=== PATIENT | female | born 1980 ===

== ENCOUNTER 2017-07-25 20:06 | Emergency (ER) | payer MEDICAID ==
[2017-07-25] MEDS ORDERED: Aluminum Hydroxide/Magnesium Hydroxide Susp (30 mL) PO STA (21:01)
[2017-07-25] MEDS ORDERED: Lactated Ringer's 1,000 ML IV STA (21:01)
[2017-07-25 21:21] LABS: HCG,QUALITATIVE URINE NEGATIVE (NEGATIVE)
[2017-07-25 21:22] LABS: BASO # 0.1 K/uL (0.0-0.2); BASO % 0.8 % (0.0-2.0); EOS # 0.1 K/uL (0.0-0.7); EOS % 1.6 % (0.0-4.0); HEMOGLOBIN 9.2 g/dL (11.0-16.0); LYMPH # 1.5 K/uL (1.0-4.3); LYMPH % 18.7 % (20.0-40.0); MEAN CELL VOLUME 68.3 fL (81.0-99.0); MEAN CORPUSCULAR HEMOGLOBIN 21.4 pg (27.0-31.0); MEAN CORPUSCULAR HGB CONC 31.4 g/dL (33.0-37.0); MEAN PLATELET VOLUME 7.9 fL (7.2-11.7); MONO # 0.5 K/uL (0.0-0.8); MONO % 6.3 % (0.0-10.0); NEUT # 5.9 K/uL (1.8-7.0); NEUT % 72.6 % (50.0-75.0); RBC 4.28 Mil/uL (3.80-5.20); RED CELL DISTRIBUTION WIDTH 18.5 % (11.5-14.5); WHITE BLOOD COUNT 8.1 K/uL (4.8-10.8)
[2017-07-25 21:25] LABS: SQUAMOUS EPITHIAL 3 /hpf (0-5); URINE BILIRUBIN NEGATIVE (NEGATIVE); URINE BLOOD 1+ (NEGATIVE); URINE CLARITY Hazy (Clear); URINE COLOR Yellow (YELLOW); URINE GLUCOSE (UA) NORMAL (Normal); URINE LEUKOCYTE ESTERASE NEG Leu/uL (Negative); URINE PROTEIN NEGATIVE (NEGATIVE); URINE UROBILINOGEN NORMAL mg/dL (0.2-1.0)
[2017-07-25 21:34] LABS: ALB/GLOB RATIO 1.2 (1.0-2.1); ALBUMIN 4.2 g/dL (3.5-5.0); ALT/SGPT 11 U/L (9-52); AST/SGOT 22 U/L (14-36); BLOOD UREA NITROGEN 11 mg/dL (7-17); CALCIUM 9.1 mg/dl (8.6-10.4); GFR AFRICAN-AMERICAN > 60; GFR NON-AFRICAN AMERICAN > 60; LIPASE 81 U/L (23-300)
[2017-07-25] MEDS ORDERED: Lactated Ringer's 1,000 ML ONE (21:39)
[2017-07-25] MEDS ORDERED: Aluminum Hydroxide/Magnesium Hydroxide Susp (30 mL) ONE (21:39)
[2017-07-25] MEDS ORDERED: Iodixanol 320 MG/ML 100 ML BOTTLE IV ONE (23:02)
--- NOTE | 2017-07-25 23:23 | C.PDOC ---
History Of Present Illness 37yo female, with history of chronic abdominal pain, was supposed to have an endoscopy and a colonoscopy on 07/16/17 but states she had to reschedule the appointment. She states she has been following up with a GI specialist who recommends she should take medications but has not been started on anything. She reports a sudden onset left upper quadrant pain earlier today, described as sharp. She denies any fever, chills, nausea, vomiting or diarrhea. She has no other medical complaints. Time Seen by Provider: 07/25/17 21:00 Chief Complaint (Nursing): Abdominal Pain History Per: Patient History/Exam Limitations: no limitations Onset/Duration Of Symptoms: Hrs, Sudden Onset Current Symptoms Are (Timing): Still Present Location Of Pain/Discomfort: LUQ Quality Of Discomfort: Sharp Additional History Per: Patient Abnormal Vaginal Bleeding: No Past Medical History Reviewed: Historical Data, Nursing Documentation, Vital Signs Vital Signs: Last Vital Signs Temp 97.9 F 07/26/17 01:13 Pulse 72 07/26/17 01:13 Resp 18 07/26/17 01:13 BP 106/69 07/26/17 01:13 Pulse Ox 100 07/26/17 01:13 - Medical History PMH: Anemia (IRON DEFICIENCY ANEMIA), Arthritis (PSORIATIC ARTHRITIS), Depression, Gastritis, Rheumatoid Arthritis Denies: Chronic Kidney Disease Surgical History: Other Surgeries: Tubal ligation - [facility] Procedures CLOSURE SKIN & SUBCUTANEOUS NEC (12/28/04) INJECT/INFUSE NEC (10/12/04) Family History: States: No Known Family Hx - Social History Hx Tobacco Use: No Hx Alcohol Use: No Hx Substance Use: No - Immunization History Hx Tetanus Toxoid Vaccination: No Hx Influenza Vaccination: No Hx Pneumococcal Vaccination: No Review Of Systems Except As Marked, All Systems Reviewed And Found Negative. Constitutional: Negative for: Fever, Chills, Weakness, Malaise, Weight loss Eyes: Negative for: Pain, Vision Change, Conjunctivae Inflammation ENT: Negative for: Ear Pain, Ear Discharge Cardiovascular: Negative for: Palpitations, Orthopnea, Paroxysmal Noc. Dyspnea, Light Headedness Respiratory: Negative for: Cough, Shortness of Breath, Hemoptysis, SOB with Excertion, Pleuritic Pain, Sputum, Wheezing Gastrointestinal: Positive for: Abdominal Pain. Negative for: Nausea, Vomiting , Diarrhea Genitourinary: Negative for: Dysuria, Frequency, Hematuria, Pelvic Pain Musculoskeletal: Negative for: Neck Pain, Shoulder Pain, Arm Pain, Back Pain, Hand Pain, Leg Pain, Foot Pain Skin: Negative for: Rash Neurological: Negative for: Weakness, Numbness, Incoordination, Change in Speech , Confusion, Seizures, Altered Mental Status, Headache, Dizziness Psych: Negative for: Anxiety, Depression, Psychosis, Suicidal ideation Physical Exam - Physical Exam Appears: Non-toxic, No Acute Distress Skin: Normal Color, Warm, Dry Head: Atraumatic, Normacephalic Eye(s): bilateral: Normal Inspection, PERRL Neck: Normal ROM, Supple Chest: Symmetrical Cardiovascular: Rhythm Regular Respiratory: Normal Breath Sounds Gastrointestinal/Abdominal: Soft, Tenderness (left upper quadrant, left lower quadrant, and left flank tenderness) Back: Normal Inspection, No CVA Tenderness Extremity: Normal ROM, No Deformity Neurological/Psych: Oriented x3 ED Course And Treatment - Laboratory Results Result Diagrams: 07/25/17 21:18 07/25/17 21:18 Medical Decision Making Medical Decision Making: Impression: Abdominal pain Plan: -- Labs -- Urinalysis -- XR Abdomen -- CT Abdomen and Plevis w/ IV contrast -- Maalox 30 ml PO -- Protonix 40mg IV -- IV Fluids Time: 2057 Urinalysis reviewed, ketone 1+ Beta negative Labs reviewed, no white count elevation, hemoglobin stable. Time: 37 EXAM: CT Abdomen and Pelvis With Intravenous Contrast EXAM DATE/TIME: 07/25/2017 10:55 PM CLINICAL HISTORY: 37 years old, female; Pain; Abdominal pain; Prior surgery; Surgery type: Tub legation; Additional info: Abd pain TECHNIQUE: Axial computed tomography images of the abdomen and pelvis with intravenous contrast. All CT scans at this facility use one or more dose reduction techniques, viz.: automated exposure control; ma/kV adjustment per patient size (including targeted exams where dose is matched to indication; i.e. head); or iterative reconstruction technique. Coronal and sagittal reformatted images were created and reviewed. CONTRAST: 100 mL of [id number] administered intravenously. COMPARISON: No relevant prior studies available. FINDINGS: The liver is normal. The spleen is normal. The pancreas is normal. No gallstones. No hydronephrosis or perinephric stranding. The bowel appears normal. A normal appendix is identified coronal images 55 through 57, axial images 113 - 119. Small scattered mesenteric lymph nodes are noted. Bilateral ovarian follicles are noted with 1.2 cm dominant follicle in the left ovary. No significant free fluid. IMPRESSION: No acute findings. Disposition Counseled Patient/Family Regarding: Diagnosis, Need For Followup - Disposition Referrals: [facility] at [facility] [place] [Outside] [facility] at [facility] [Outside] [facility] at [place] [Outside] Disposition: HOME/ ROUTINE Disposition Time: 00:57 Condition: GOOD Additional Instructions: return if symptoms worsen Instructions: Acute Abdomen (Belly Pain) Forms: [employer] (Thai) - Clinical Impression Clinical Impression: Abdominal pain - Scribe Statement The provider has reviewed the documentation as recorded by the Scribe (Maryanne Michel) Provider Attestation: All medical record entries made by the Scribe were at my direction and personally dictated by me. I have reviewed the chart and agree that the record accurately reflects my personal performance of the history, physical exam, medical decision making, and the department course for this patient. I have also personally directed, reviewed, and agree with the discharge instructions and disposition.
[2017-07-25 23:46] VITALS: RESP 18
--- NOTE | 2017-07-26 00:36 | CT ---
EXAM: CT Abdomen and Pelvis With Intravenous Contrast EXAM DATE/TIME: 07/25/2017 10:55 PM CLINICAL HISTORY: 37 years old, female; Pain; Abdominal pain; Prior surgery; Surgery type: Tub legation; Additional info: Abd pain TECHNIQUE: Axial computed tomography images of the abdomen and pelvis with intravenous contrast. All CT scans at this facility use one or more dose reduction techniques, viz.: automated exposure control; ma/kV adjustment per patient size (including targeted exams where dose is matched to indication; i.e. head); or iterative reconstruction technique. Coronal and sagittal reformatted images were created and reviewed. CONTRAST: 100 mL of [id number] administered intravenously. COMPARISON: No relevant prior studies available. FINDINGS: The liver is normal. The spleen is normal. The pancreas is normal. No gallstones. No hydronephrosis or perinephric stranding. The bowel appears normal. A normal appendix is identified coronal images 55 through 57, axial images 113 - 119. Small scattered mesenteric lymph nodes are noted. Bilateral ovarian follicles are noted with 1.2 cm dominant follicle in the left ovary. No significant free fluid. IMPRESSION: No acute findings.
[2017-07-26 01:13] VITALS: BP 106/69; PULSE 72; TEMP 97.9; O2SAT 100
--- NOTE | 2017-07-26 08:20 | RAD ---
PROCEDURE: Radiographs of the chest and abdomen (obstructive series) HISTORY: abd pain COMPARISON: No prior. TECHNIQUE: AP radiograph of the chest, with upright and supine radiographs of the abdomen. FINDINGS: CHEST: Lungs: Clear. Cardiovascular: Normal size heart. No pulmonary vascular congestion. Pleura: No pleural fluid. No pneumothorax. Other findings: None. ABDOMEN AND PELVIS: Bowel: Unremarkable bowel gas pattern. No evidence of mechanical obstruction. Free air: None. Bones: Unremarkable. Other findings: None. IMPRESSION: Unremarkable radiographs of chest and abdomen. No evidence of mechanical bowel obstruction.
== END 2017-07-26 01:14 | disposition home or self-care (01) ==
LOC: C.ER 20:06
DX: R10.9 Unspecified abdominal pain (principal); D50.9 Iron deficiency anemia, unspecified
CPT/HCPCS: 74022; 74177; 80053; 81001; 83690; 84703; 85025; 96361; 96374; 99285; C9113; J7120; Q9967

== ENCOUNTER 2017-12-23 10:22 | Emergency (ER) | payer MEDICAID ==
--- NOTE | 2017-12-23 11:22 | C.PDOC ---
History Of Present Illness 37 years old female with Hx of rheumatoid arthritis, 2 cysts, and cervical cancer (Years ago) BIBA for vaginal bleeding that began 8 days ago. Patient reports bleeding as "the usual menstrual cycle." Patient states "I always experience heavy bleeding and I get my menstrual cycle at least 3 times a month." Patient also reports associated abdominal pain, right sided back pain, one episode of vomiting, and generalized weakness. Patient also states symptoms are similar to previous. She also states taking 2 prescribed Naproxens. Patient is allergic to Caffeine, Park Naturalist: [place] Donaldson. Time Seen by Provider: 12/23/17 10:40 Chief Complaint (Nursing): Abdominal Pain History Per: Patient History/Exam Limitations: no limitations Onset/Duration Of Symptoms: Days (8) Current Symptoms Are (Timing): Still Present Location Of Pain/Discomfort: Diffuse Radiation Of Pain To:: Back Quality Of Discomfort: Cramping, Other (Contractions) Associated Symptoms: Vomiting. denies: Fever, Chills, Nausea, Diarrhea Exacerbating Factors: None Alleviating Factors: None Last Bowel Movement: Today Recent travel outside of the [place]: No Abnormal Vaginal Bleeding: Yes Past Medical History Reviewed: Historical Data, Nursing Documentation, Vital Signs Vital Signs: Last Vital Signs Temp 98.7 F 12/23/17 10:28 Pulse 70 12/23/17 10:28 Resp 18 12/23/17 10:28 BP 118/82 12/23/17 10:28 Pulse Ox 99 12/23/17 10:28 - Medical History PMH: Anemia (IRON DEFICIENCY ANEMIA), Arthritis (PSORIATIC ARTHRITIS), Depression, Gastritis, Rheumatoid Arthritis Surgical History: - [facility] Procedures CLOSURE SKIN & SUBCUTANEOUS NEC (12/28/04) INJECT/INFUSE NEC (10/12/04) Family History: States: No Known Family Hx - Social History Hx Tobacco Use: No Hx Alcohol Use: No Hx Substance Use: No - Immunization History Hx Tetanus Toxoid Vaccination: No Hx Influenza Vaccination: No Hx Pneumococcal Vaccination: No Review Of Systems Constitutional: Negative for: Fever, Chills Gastrointestinal: Positive for: Vomiting, Abdominal Pain. Negative for: Nausea Genitourinary: Positive for: Vaginal Bleeding Musculoskeletal: Positive for: Back Pain (Right sided lower back ) Skin: Negative for: Rash Neurological: Negative for: Weakness, Numbness Physical Exam - Physical Exam Appears: Non-toxic, No Acute Distress, Other (Pale) Skin: Warm, Dry, Rash (Scattered on her neck ) Head: Atraumatic, Normacephalic Eye(s): bilateral: Normal Inspection, PERRL, EOMI Oral Mucosa: Moist Neck: Supple Chest: Symmetrical, No Tenderness Cardiovascular: Rhythm Regular, No Murmur Respiratory: Normal Breath Sounds, No Rales, No Rhonchi, No Wheezing Gastrointestinal/Abdominal: Bowel Sounds (Active ), Soft, No Tenderness, No Distention, No Guarding, No Rebound Back: Normal Inspection, No CVA Tenderness, No Paraspinal Tenderness Extremity: Normal ROM, No Deformity Extremity: Bilateral: Atraumatic, Normal Color And Temperature, Normal ROM Neurological/Psych: Oriented x3, Normal Speech, Other (No focal deficits ) Gait: Steady ED Course And Treatment - Laboratory Results Result Diagrams: 12/23/17 11:32 12/23/17 11:32 O2 Sat by Pulse Oximetry: 99 (RA) Pulse Ox Interpretation: Normal - CT Scan/US Abdomen/Pelvis/Transvaginal US Other Rad Studies (CT/US): Read By Radiologist, Radiology Report Reviewed CT/US Interpretation: Date of service: 12/23/2017. PROCEDURE: Pelvic ultras ound. HISTORY: Heavy vaginal bleed, pelvic pain. COMPARISON: Comparison made with prior study 07/05/2017. TECHNIQUE: Transabdominal and transvaginal sonographic evaluation of the pelvis performed. FINDINGS: The uterus is anteverted measuring approximately 9.4 x 4.7 x 5.1 cm. Suspect small fundal fibroid that is measures approximately 1.8 x 1.8 x 1.9 cm. Endometrial stripe measures approximately 5.8 mm. Suspect small fundal fibroid. Right ovary measures 2.9 x 2.1 x 3.2 cm and left ovary measures 3.1 x 2.2 x 2.6 cm. Both ovaries exhibit arterial flow. There is a complex small left ovarian cyst that measures 0.75 x 0.64 x 0.81 cm. No free fluid seen in the cul de sac. IMPRESSION: Suspect small fundal fibroid.. Tiny complex appearing left ovarian cyst. Medical Decision Making Medical Decision Making: Plan: * Toradol * BBK * Blood work * Abdomen/Pelvis/Transvaginal US * Urinalysis Results were discussed with the patient and instructed to continue taking iron supplements. On re-exam, the patient reports improvement of symptoms. Lungs are CTA, heart is RRR, abdomen is soft, non-tender and tolerating PO well. Follow up with the medical doctor within 1-2 days without fail. Return if worsened. Disposition - Disposition Referrals: [facility] [Outside] [facility] [place] [Outside] Disposition: HOME/ ROUTINE Disposition Time: 14:30 Condition: STABLE Additional Instructions: Follow up with the OBGYN within 1-2 days without fail. Return if worsened. 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 - Scribe Statement The provider has reviewed the documentation as recorded by the Chanelleibdorita Earl All medical record entries made by the Scribe were at my direction and personally dictated by me. I have reviewed the chart and agree that the record accurately reflects my personal performance of the history, physical exam, medical decision making, and the department course for this patient. I have also personally directed, reviewed, and agree with the discharge instructions and disposition.
[2017-12-23 11:35] LABS: BASO # 0.1 K/uL (0.0-0.2); BASO % 0.6 % (0.0-2.0); EOS # 0.1 K/uL (0.0-0.7); EOS % 1.3 % (0.0-4.0); HEMOGLOBIN 9.7 g/dL (11.0-16.0); LYMPH # 1.5 K/uL (1.0-4.3); LYMPH % 14.7 % (20.0-40.0); MEAN CELL VOLUME 66.4 fL (81.0-99.0); MEAN CORPUSCULAR HEMOGLOBIN 20.4 pg (27.0-31.0); MEAN CORPUSCULAR HGB CONC 30.8 g/dL (33.0-37.0); MEAN PLATELET VOLUME 8.4 fL (7.2-11.7); MONO # 0.4 K/uL (0.0-0.8); MONO % 4.1 % (0.0-10.0); NEUT # 8.2 K/uL (1.8-7.0); NEUT % 79.3 % (50.0-75.0); RBC 4.76 Mil/uL (3.80-5.20); WHITE BLOOD COUNT 10.4 K/uL (4.8-10.8)
[2017-12-23 11:50] LABS: ALB/GLOB RATIO 1.4 (1.0-2.1); ALBUMIN 4.5 g/dL (3.5-5.0); ALT/SGPT 20 U/L (9-52); AST/SGOT 17 U/L (14-36); BLOOD UREA NITROGEN 16 mg/dL (7-17); CALCIUM 9.6 mg/dl (8.6-10.4); GFR NON-AFRICAN AMERICAN > 60
[2017-12-23 12:12] LABS: URINE BACTERIA RARE (<OCC); URINE BILIRUBIN NEGATIVE (NEGATIVE); URINE BLOOD 3+ (NEGATIVE); URINE CLARITY Hazy (Clear); URINE GLUCOSE (UA) NORMAL (Normal); URINE LEUKOCYTE ESTERASE TRACE Leu/uL (Negative); URINE PROTEIN 2+ mg/dL (NEGATIVE); URINE UROBILINOGEN NORMAL mg/dL (0.2-1.0)
[2017-12-23 12:22] LABS: HCG,QUALITATIVE URINE NEGATIVE (NEGATIVE)
[2017-12-23 12:23] LABS: URINE COLOR LIGHT RED (YELLOW)
--- NOTE | 2017-12-23 14:11 | US ---
Date of service: 12/23/2017 PROCEDURE: Pelvic ultrasound HISTORY: Heavy vaginal bleed, pelvic pain COMPARISON: Comparison made with prior study 07/05/2017. TECHNIQUE: Transabdominal and transvaginal sonographic evaluation of the pelvis performed. FINDINGS: The uterus is anteverted measuring approximately 9.4 x 4.7 x 5.1 cm. Suspect small fundal fibroid that is measures approximately 1.8 x 1.8 x 1.9 cm. Endometrial stripe measures approximately 5.8 mm. Suspect small fundal fibroid Right ovary measures 2.9 x 2.1 x 3.2 cm and left ovary measures 3.1 x 2.2 x 2.6 cm. Both ovaries exhibit arterial flow. There is a complex small left ovarian cyst that measures 0.75 x 0.64 x 0.81 cm. No free fluid seen in the cul de sac. IMPRESSION: Suspect small fundal fibroid.. Tiny complex appearing left ovarian cyst.
[2017-12-23 14:57] VITALS: BP 110/72; PULSE 73; RESP 17; TEMP 98.5
[2017-12-23 18:16] VITALS: O2SAT 99
== END 2017-12-23 15:19 | disposition home or self-care (01) ==
LOC: C.ER 10:22
DX: D25.9 Leiomyoma of uterus, unspecified (principal); D64.9 Anemia, unspecified; M06.9 Rheumatoid arthritis, unspecified
CPT/HCPCS: 76830; 76856; 80053; 81001; 84703; 85025; 86850; 86900; 96374; 99285; J1885